=== PATIENT | female | born 1960 | race Caucasian/White ===

== ENCOUNTER 2021-01-18 07:34 | Outpatient (CLI) | payer OTHER, SELFPAY ==
--- NOTE | 2021-01-18 07:15 | USCV_ITS ---
Shanda Claros Age: 60 Gender: F : 1960 Exam Date: 01/18/2021 07:58 Ordering Phys: Eloise Barreto MD ([email or web address]) Technologist: Lizzeth Baker Exam Location: [facility] [place] Indication: SHORTNESS OF BREATH BP: 157 / 82 HR: 61 Rhythm: Sinus Technical Quality: Adequate MEASUREMENTS (Male / Female) Normal Values 2D ECHO LV Diastolic Diameter PLAX 4.0 cm 4.2 - 5.9 / 3.9 - 5.3 cm LV Systolic Diameter PLAX 2.2 cm LV Chamber Size 2.9 cm IVS Diastolic Thickness 1.0 cm 0.6 - 1.0 / 0.6 - 0.9 cm IVS Systolic Thickness 1.3 cm LVPW Diastolic Thickness 1.8 cm 0.6 - 1.0 / 0.6 - 0.9 cm LVPW Systolic Thickness 2.6 cm RV Chamber Size 2.6 cm LVOT Diameter 2.0 cm LV Ejection Fraction 2D Teich 76.6 % LV Ejection Fraction MOD 2C 32.7 % LV Ejection Fraction 2C AL 34.8 % LA Diameter 2.6 cm LA Width 3.3 cm LA Height 4.6 cm RA Width 3.0 cm RA Height 2.9 cm Aorta at Sinotubular Diameter 2.4 cm M-MODE LV Diastolic Diameter MM 4.6 cm 4.2 - 5.9 / 3.9 - 5.3 cm LV Systolic Diameter MM 2.6 cm LV Ejection Fraction MM Teich 74.7 % IVS Diastolic Thickness MM 1.0 cm 0.6 - 1.0 / 0.6 - 0.9 cm IVS Systolic Thickness MM 1.4 cm LVPW Diastolic Thickness MM 1.2 cm 0.6 - 1.0 / 0.6 - 0.9 cm LVPW Systolic Thickness MM 1.4 cm Aortic Annulus Diameter 2.6 cm LA Ao Ratio MM 1.0 MV E Point Septal Separation 0.6 cm DOPPLER AV Peak Velocity 120.7 cm/s LVOT Peak Velocity 89.7 cm/s AV Area Cont Eq vti 3.0 cm squared AV Area Cont Eq pk 2.4 cm squared MV Area PHT 4.1 cm squared Mitral E to A Ratio 0.8 MV E' Velocity 42.0 cm/s Mitral E to MV E' Ratio 9.2 Mitral E to LV E' Lateral Ratio 10.0 Mitral E to LV E' Septal Ratio 8.7 TR Peak Velocity 229.0 cm/s TR Peak Gradient 21.0 mmHg TV Peak E Velocity 84.0 cm/s Right Atrial Pressure 3.0 mmHg Pulmonary Artery Systolic Pressu 24.0 mmHg PV Peak Velocity 63.0 cm/s RV Acceleration Time 0.1 s RV Ejection Time 0.3 s RV AcT/ET 0.4 FINDINGS Left Ventricle Normal left ventricular cavity size. Normal left ventricular systolic function. No regional wall motion abnormalities. Left ventricular ejection fraction is estimated at 65 %. Grade I/IV diastolic dysfunction (abnormal relaxation filling pattern), normal to mildly elevated filling pressures. Right Ventricle The right ventricle is normal in size and function. Right Atrium The right atrium is normal in size. Left Atrium The left atrium is normal in size. Mitral Valve Structurally normal mitral valve without significant stenosis or prolapse. There is no mitral regurgitation. Aortic Valve Structurally normal aortic valve without significant sclerosis or stenosis. There is no aortic regurgitation. Tricuspid Valve Structurally normal tricuspid valve without significant stenosis or regurgitation. Pulmonary artery systolic pressure is normal. Pulmonic Valve Structurally normal pulmonic valve without significant stenosis. There is no pulmonic regurgitation. Pericardium Normal pericardium without effusion. Aorta Normal ascending aorta dimension. CONCLUSIONS 1-Normal left ventricular cavity size. Normal left ventricular systolic function. No regional wall motion abnormalities. Left ventricular ejection fraction is estimated at 65 %. Grade I/IV diastolic dysfunction (abnormal relaxation filling pattern), normal to mildly elevated filling pressures. 2-There is no pericardial effusion. 3-No significant valve abnormalities. 4-Pulmonary artery systolic pressure is within normal limits. 5-Right atrial pressure is around 5 mm of mercury. 6-There are no prior echocardiogram studies to compare. Eloise Barreto MD (Electronically Signed) Final Date: 28 Jan 2021 18:43 S
== END 2021-01-18 07:35 | disposition home or self-care (01) ==
LOC: RAD 07:39
PROVIDERS: PCP Nurse Practitioner Family; Visit Provider Internal Medicine Cardiovascular Disease
DX: R06.02 Shortness of breath (principal); I45.10 Unspecified right bundle-branch block
CPT/HCPCS: 93306